=== PATIENT | male | born 1960 | race Two or more races ===

== ENCOUNTER 2018-09-19 11:55 | Emergency (ER) | payer SELFPAY ==
[~2018-09-19] VITALS: Ht 177.8 cm; Wt 81.1 kg
--- NOTE | 2018-09-19 12:31 | NUR ---
AUTO ROLLER: PT TO ROOM FROM LOBBY VIA W/C
--- NOTE | 2018-09-19 12:46 | NUR ---
BILATERAL LEG SWELLING WITH PAIN
[2018-09-19 13:09] LABS: BASOPHILS # (AUTO) 0.04 x10^3/uL (0-0.1); BASOPHILS % (AUTO) 1 % (0-1); EOSINOPHILS # (AUTO) 0.13 x10^3/uL (0-0.4); EOSINOPHILS % (AUTO) 2 % (1-7); LYMPHOCYTES # (AUTO) 0.81 x10^3/uL (1-3.4); LYMPHOCYTES % (AUTO) 14 % (22-44); MD NO; MEAN CORPUSCULAR HEMOGLOBIN 29.3 pg (27.5-34.5); MEAN CORPUSCULAR HGB CONC 32.4 g/dL (33.2-36.2); MEAN CORPUSCULAR VOLUME 90.5 fL (81-97); MEAN PLATELET VOLUME 9.8 fL (7.4-10.4); MONOCYTES # (AUTO) 0.45 x10^3/uL (0.2-0.8); MONOCYTES % (AUTO) 8 % (2-9); NEUTROPHILS # (AUTO) 4.41 x10^3/uL (1.8-6.8); NEUTROPHILS % (AUTO) 76 % (42-75); PLATELET COUNT 124 x10^3/uL (130-400)
--- NOTE | 2018-09-19 13:09 | NUR ---
PULSES DETECTED BILATERAL FEET WITH ULTRASOUND
[2018-09-19 13:19] LABS: ALANINE AMINOTRANSFERASE 19 U/L (12-78); ANION GAP 13 mmol/L (5-15); CALCIUM 8.2 mg/dL (8.5-10.1); CHLORIDE 100 mmol/L (98-107)
[2018-09-19 13:21] LABS: ALKALINE PHOSPHATASE 99 U/L (45-117); BILIRUBIN,TOTAL 0.6 mg/dL (0.2-1.0); TOTAL PROTEIN 7.3 g/dL (6.4-8.2)
--- NOTE | 2018-09-19 13:30 | NUR ---
ASSUMED CARE OF PT WHILE PRIMARY RN AT LUNCH. PT TAKEN TO US. PT REQUESTING PAIN MEDICATIONS. MD AWARE
[2018-09-19] MEDS ORDERED: HYDROcodone/APAP 5/325 TABLET ONE (14:13)
--- NOTE | 2018-09-19 14:21 | NUR ---
MEDICATED FOR PAIN AND THEN AMBULATED TO BATHROOM WITH USE OF CANE
[2018-09-19] MEDS ORDERED: HYDROcodone/APAP 5/325 TABLET PO ONE (14:30)
--- NOTE | 2018-09-19 14:52 | NUR ---
VASCULAR AT BEDSIDE PERFORMING LOWER EXTREMITY STUDY
[2018-09-19 15:19] VITALS: BP 148/95
--- NOTE | 2018-09-19 16:15 | NUR ---
SITTING ON EDGE OF BED, NO DISTRESS
--- NOTE | 2018-09-19 16:36 | NUR ---
PROVIDER USING MEDICAL STAFF TO TRANSLATE FROM FRENCH TO [place]ESE TO DISCUSS POC/OUTPATIENT DIALYSIS AND STUDY RESULTS
== END 2018-09-19 17:06 | disposition home or self-care (01) ==
LOC: ED 17:05
DX: G62.9 Polyneuropathy, unspecified (principal); I12.0 Hypertensive chronic kidney disease with stage 5 chronic kidney disease or end stage renal disease; N18.6 End stage renal disease; Z99.2 Dependence on renal dialysis
CPT/HCPCS: 36415; 80053; 85025; 93922; 93970; 99284